=== PATIENT | male | born 1975 | race African-American/Black ===

== ENCOUNTER 2016-08-25 12:55 | Emergency (ER) | payer OTHER ==
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
[2016-08-25 15:20] VITALS: BP 128/88
--- NOTE | 2016-08-25 15:39 | RAD ---
INDICATION: Pain and swelling of thumb COMPARISON: None TECHNIQUE: AP, lateral, and oblique views were obtained. FINDINGS: There are no acute bony changes. 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 There is no acute bony change. There is mild soft tissue swelling over the dorsum of the hand. IMPRESSION: NO ACUTE BONY FINDINGS.
== END 2016-08-25 15:47 | disposition home or self-care (01) ==
LOC: UCEAST 12:55
DX: S60.222A Contusion of left hand, initial encounter (principal); W22.8XXA Striking against or struck by other objects, initial encounter; Y92.9 Unspecified place or not applicable; F17.210 Nicotine dependence, cigarettes, uncomplicated; Z79.82 Long term (current) use of aspirin; Z79.02 Long term (current) use of antithrombotics/antiplatelets; J45.909 Unspecified asthma, uncomplicated; I10 Essential (primary) hypertension; Z95.810 Presence of automatic (implantable) cardiac defibrillator
CPT/HCPCS: 99212; G0463

== ENCOUNTER 2023-05-18 19:22 | Observation (INO) ==
[2023-05-18 20:15] LABS: ABS Basophils 0.1 10^3/uL (0.0-0.1); ABS Lymphocytes 1.1 10^3/uL (1.0-4.8); ABS Monocytes 0.6 10^3/uL (0.0-1.1); ABS Neutrophils 5.6 10^3/uL (1.5-7.6); ABS Nucleated RBC 0.02 10^3/ul; Eosinophil % 0.4 %; Hematocrit 48.8 % (38-53); Hemoglobin 16.6 g/dL (13.2-16.3); Lymphocyte % 14.4 %; Mean Corpuscular Hemoglobin 33.6 pg (27-33); Mean Corpuscular Volume 98.7 fL (80-97); Mean Platelet Volume 10.4 fL (7.5-11.2); Nucleated Red Blood Cells % 0.3 %/100WBC (0.0-0.8); Platelet Count 122 10^3/uL (150-450); Red Blood Count 4.95 10^6/uL (4.06-5.63); Red Cell Distribution Width 19.5 % (12-17); White Blood Count 7.4 10^3/uL (3.6-10.2)
[2023-05-18 20:25] LABS: INR 1.97 (0.83-1.13)
[2023-05-18 20:42] LABS: Albumin/Globulin Ratio 0.7 (1-3); Calcium 8.9 mg/dL (8.6-10.3); Creatinine, Serum 1.26 mg/dL (0.67-1.17); Globulin 4.3 g/dL (2-4); Potassium 4.7 mmol/L (3.5-5.0); Total Bilirubin 4.8 mg/dL (0.2-1.0); Total Protein 7.3 g/dL (6.4-8.9); eGFR CKD-EPI 69.9 (>60)
[2023-05-18] MEDS ORDERED: Furosemide 40 mg/4 ml IV VIAL IV ONE (21:21)
[2023-05-18] MEDS ORDERED: Iohexol 350 (CONTRAST) 500 ML MDV IV ONE (21:56)
[2023-05-18 22:36] LABS: High Sensitivity Troponin 1 Hr 69 pg/mL (<20)
[2023-05-19] MEDS ORDERED: Furosemide 40 mg/4 ml IV VIAL IV SLOW PU ONE (01:26)
[2023-05-19 01:56] LABS: Direct Bilirubin 2.2 mg/dL (0.03-0.18); Magnesium 1.9 mg/dL (1.9-2.7)
[2023-05-19] MEDS ORDERED: Enoxaparin 40 MG/0.4 ML SYR SUBCUT SCH (02:00)
[2023-05-19 05:05] LABS: Urine Appearance Clear; Urine Bilirubin Negative (Negative); Urine Blood Negative (Negative); Urine Color Amber; Urine Glucose Negative (Negative); Urine Ketones Negative (Negative); Urine Nitrite Negative (Negative); Urine Protein 2+(100 mg/dL) (Negative); Urine Specific Gravity 1.013 (1.002-1.030); Urine Urobilinogen Positive (Negative)
[2023-05-19 05:27] LABS: Urine Bacteria Absent (Absent); Urine Red Blood Cell Trace(0-2/hpf) (Absent); Urine White Blood Cell Trace(0-5/hpf) (Absent)
[2023-05-19] MEDS ORDERED: Furosemide 40 mg/4 ml IV VIAL IV SLOW PU SCH (08:00)
[2023-05-19 08:26] LABS: Urine Creatinine Concentration 36.83 mg/dL (20.00-370.00); Urine TP Creat Ratio 0.24 mg/mg
[2023-05-19] MEDS ORDERED: Saline NASAL SPRAY 0.65% BTL BOTH NARES ONE (08:29)
[2023-05-19] MEDS: Aspirin EC 81 mg TAB.EC (enteric coated) PO SCH (08:49)
[2023-05-19] MEDS: Enoxaparin 40 MG/0.4 ML SYR SUBCUT SCH (09:03)
[2023-05-19 12:51] LABS: Calcium 8.4 mg/dL (8.6-10.3); Creatinine, Serum 1.21 mg/dL (0.67-1.17); Magnesium 1.8 mg/dL (1.9-2.7); eGFR CKD-EPI 73.4 (>60)
[2023-05-19 13:18] LABS: Potassium 4.7 mmol/L (3.5-5.0)
[2023-05-20 06:50] LABS: ABS Basophils 0.1 10^3/uL (0.0-0.1); ABS Eosinophils 0.1 10^3/uL (0.0-0.5); ABS Lymphocytes 1.3 10^3/uL (1.0-4.8); ABS Monocytes 0.6 10^3/uL (0.0-1.1); ABS Neutrophils 5.4 10^3/uL (1.5-7.6); ABS Nucleated RBC 0.02 10^3/ul; Eosinophil % 0.8 %; Hemoglobin 15.8 g/dL (13.2-16.3); Lymphocyte % 17.6 %; Mean Corpuscular Hgb Conc 33.6 g/dL (31-36); Mean Corpuscular Volume 98.4 fL (80-97); Mean Platelet Volume 10.3 fL (7.5-11.2); Nucleated Red Blood Cells % 0.3 %/100WBC (0.0-0.8); Platelet Count 113 10^3/uL (150-450); Red Blood Count 4.78 10^6/uL (4.06-5.63); Red Cell Distribution Width 19.3 % (12-17); White Blood Count 7.4 10^3/uL (3.6-10.2)
[2023-05-20 07:05] LABS: Albumin 2.8 g/dL (3.2-5.2); Albumin/Globulin Ratio 0.7 (1-3); Calcium 8.5 mg/dL (8.6-10.3); Creatinine, Serum 1.05 mg/dL (0.67-1.17); Globulin 4.1 g/dL (2-4); Magnesium 1.8 mg/dL (1.9-2.7); Potassium 4.4 mmol/L (3.5-5.0); Total Protein 6.9 g/dL (6.4-8.9)
[2023-05-20] MEDS ORDERED: Magnesium Sulfate 2 gm BAG 2 GM/50 ML BAG IVPB ONE (07:40)
[2023-05-20] MEDS ORDERED: Furosemide 40 mg/4 ml IV VIAL IV SLOW PU SCH (08:00)
[2023-05-20] MEDS: Enoxaparin 40 MG/0.4 ML SYR SUBCUT SCH ×2 (09:26→09:31)
[2023-05-20] MEDS: Aspirin EC 81 mg TAB.EC (enteric coated) PO SCH (09:28)
[2023-05-20] MEDS ORDERED: Magnesium Chloride EC 64 mgTAB PO ONE (10:28)
[2023-05-20] MEDS ORDERED: Furosemide 40 mg/4 ml IV VIAL IV ONE (14:00)
[2023-05-21] MEDS ORDERED: Saline NASAL SPRAY 0.65% BTL BOTH NARES PRN (02:12)
[2023-05-21] MEDS ORDERED: PAIN RELIEVING RUB (MENTHOL/SALICYLATE) 1 APPLIC TUBE TOPICAL PRN (03:46)
[2023-05-21 06:40] LABS: ABS Basophils 0.1 10^3/uL (0.0-0.1); ABS Lymphocytes 1.2 10^3/uL (1.0-4.8); ABS Monocytes 0.6 10^3/uL (0.0-1.1); ABS Neutrophils 4.9 10^3/uL (1.5-7.6); ABS Nucleated RBC 0.02 10^3/ul; Eosinophil % 0.5 %; Hematocrit 46.4 % (38-53); Hemoglobin 15.6 g/dL (13.2-16.3); Lymphocyte % 17.6 %; Mean Corpuscular Hemoglobin 33.2 pg (27-33); Mean Corpuscular Hgb Conc 33.6 g/dL (31-36); Mean Corpuscular Volume 98.8 fL (80-97); Mean Platelet Volume 10.5 fL (7.5-11.2); Nucleated Red Blood Cells % 0.4 %/100WBC (0.0-0.8); Platelet Count 116 10^3/uL (150-450); Red Blood Count 4.69 10^6/uL (4.06-5.63); Red Cell Distribution Width 20.3 % (12-17); White Blood Count 6.8 10^3/uL (3.6-10.2)
[2023-05-21 07:01] LABS: Albumin 2.6 g/dL (3.2-5.2); Albumin/Globulin Ratio 0.7 (1-3); Calcium 8.3 mg/dL (8.6-10.3); Creatinine, Serum 1.08 mg/dL (0.67-1.17); Magnesium 1.9 mg/dL (1.9-2.7); Potassium 4.2 mmol/L (3.5-5.0); Total Bilirubin 4.1 mg/dL (0.2-1.0); Total Protein 6.6 g/dL (6.4-8.9); eGFR CKD-EPI 84.1 (>60)
[2023-05-21 08:22] LABS: Direct Bilirubin 1.9 mg/dL (0.03-0.18); Indirect Bilirubin 2.2 mg/dL (0.3-1.0)
[2023-05-21 09:20] LABS: Albumin 2.5 g/dL (3.4-4.7); Flag, M-protein Isotype Positive (Negative); Total Protein 7.1 g/dL (6.3 - 7.9)
[2023-05-21] MEDS: Aspirin EC 81 mg TAB.EC (enteric coated) PO SCH (09:23)
[2023-05-21] MEDS: Enoxaparin 40 MG/0.4 ML SYR SUBCUT SCH (09:23)
[2023-05-21 14:32] VITALS: BP 110/69
== END 2023-05-21 14:55 | disposition home or self-care (01) ==
LOC: ED 19:22 → EDHOLD 19:22 → SUATTDRO 05-19 01:22 → MEDTELE 05-19 11:14
PROVIDERS: ADMIT Internal Medicine; ATTEND Hospitalist

== ENCOUNTER 2023-06-01 21:08 | Inpatient (IN) ==
[2023-06-01 22:24] LABS: ABS Basophils 0.1 10^3/uL (0.0-0.1); ABS Lymphocytes 0.8 10^3/uL (1.0-4.8); ABS Monocytes 0.9 10^3/uL (0.0-1.1); ABS Neutrophils 7.2 10^3/uL (1.5-7.6); ABS Nucleated RBC 0.01 10^3/ul; Eosinophil % 0.1 %; Hematocrit 44.4 % (38-53); Mean Corpuscular Hgb Conc 33.7 g/dL (31-36); Mean Corpuscular Volume 97.8 fL (80-97); Mean Platelet Volume 8.6 fL (7.5-11.2); Nucleated Red Blood Cells % 0.1 %/100WBC (0.0-0.8); Platelet Count 201 10^3/uL (150-450); Red Blood Count 4.54 10^6/uL (4.06-5.63); Red Cell Distribution Width 19.9 % (12-17); White Blood Count 8.9 10^3/uL (3.6-10.2)
[2023-06-01 22:41] LABS: Albumin 3.1 g/dL (3.2-5.2); Albumin/Globulin Ratio 0.7 (1-3); C Reactive Protein 37.75 mg/L (<8.01); Calcium 8.9 mg/dL (8.6-10.3); Creatinine, Serum 1.08 mg/dL (0.67-1.17); Globulin 4.6 g/dL (2-4); Potassium 4.6 mmol/L (3.5-5.0); Total Bilirubin 3.3 mg/dL (0.2-1.0); Total Protein 7.7 g/dL (6.4-8.9); eGFR CKD-EPI 84.1 (>60)
[2023-06-02] MEDS ORDERED: Furosemide 40 mg/4 ml IV VIAL IV SLOW PU ONE ×2 (00:33→06:30)
[2023-06-02] MEDS ORDERED: Iohexol 350 (CONTRAST) 500 ML MDV IV ONE (01:08)
[2023-06-02] MEDS ORDERED: Acetaminophen IV 1 GM/100ML 1,000 MG/100 ML BAG IV ONE (03:05)
[2023-06-02 04:45] LABS: Direct Bilirubin 1.6 mg/dL (0.03-0.18)
[2023-06-02] MEDS ORDERED: Ondansetron 4 mg VIAL 2 MG/ML 2 ml VIAL IV PRN (04:58)
[2023-06-02 06:30] LABS: High Sensitivity Troponin 1 Hr 88 pg/mL (<20)
[2023-06-02 06:47] LABS: Magnesium 1.5 mg/dL (1.9-2.7)
[2023-06-02] MEDS ORDERED: Morphine 2 MG/ML SYRINGE IV PRN ×2 (07:03→14:02)
[2023-06-02] MEDS: Aspirin EC 81 mg TAB.EC (enteric coated) PO SCH (08:30)
[2023-06-02] MEDS: Enoxaparin 40 MG/0.4 ML SYR SUBCUT SCH (08:30)
[2023-06-02] MEDS ORDERED: Morphine 2 MG/ML SYRINGE IV ONE (09:24)
[2023-06-02] MEDS ORDERED: cefTRIAXone 1 gm/50 mL D5W 1 GM/50 ML BAG IV SCH (10:30)
[2023-06-02] MEDS ORDERED: Magnesium Sulfate 2 gm BAG 2 GM/50 ML BAG IVPB ONE (10:50)
[2023-06-02] MEDS ORDERED: Magnesium Sulfate IV 1GM/100ML 1 GM/100 ML BAG IV ONE (12:50)
[2023-06-02 21:47] LABS: Ferritin 516.5 ng/mL (24-336)
[2023-06-02 22:26] LABS: High Sensitivity Troponin 1 Hr 76 pg/mL (<20)
[2023-06-03] MEDS: Morphine 2 MG/ML SYRINGE IV PRN ×3 (00:09→12:10)
[2023-06-03 07:33] LABS: Hematocrit 53.9 % (38-53); Hemoglobin 17.7 g/dL (13.2-16.3); Mean Corpuscular Hemoglobin 32.8 pg (27-33); Mean Corpuscular Hgb Conc 32.7 g/dL (31-36); Mean Corpuscular Volume 100.1 fL (80-97); Mean Platelet Volume 8.8 fL (7.5-11.2); Platelet Count 217 10^3/uL (150-450); Red Blood Count 5.39 10^6/uL (4.06-5.63); Red Cell Distribution Width 20.5 % (12-17); White Blood Count 17.1 10^3/uL (3.6-10.2)
[2023-06-03 07:50] LABS: Calcium 10.3 mg/dL (8.6-10.3); Creatinine, Serum 1.24 mg/dL (0.67-1.17); Magnesium 1.9 mg/dL (1.9-2.7); Potassium 4.8 mmol/L (3.5-5.0); eGFR CKD-EPI 71.3 (>60)
[2023-06-03 09:36] LABS: ABS Basophils 0.1 10^3/uL (0.0-0.1); ABS Lymphocytes 1.3 10^3/uL (1.0-4.8); ABS Monocytes 1.9 10^3/uL (0.0-1.1); ABS Neutrophils 13.8 10^3/uL (1.5-7.6); ABS Nucleated RBC 0.01 10^3/ul; Eosinophil % 0.2 %; Lymphocyte % 7.8 %; Nucleated Red Blood Cells % 0.1 %/100WBC (0.0-0.8)
[2023-06-03] MEDS: Enoxaparin 40 MG/0.4 ML SYR SUBCUT SCH (09:47)
[2023-06-03] MEDS: Aspirin EC 81 mg TAB.EC (enteric coated) PO SCH (09:47)
[2023-06-03] MEDS: Bumetanide IV 0.25 MG/ML 4 ml VIAL (1 mg) IV SLOW PU SCH ×2 (09:52→20:51)
[2023-06-03] MEDS: cefTRIAXone 1 GM Q24H (ADVAN) IVPB SCH (12:09)
[2023-06-03 13:15] LABS: INR 1.58 (0.83-1.13)
[2023-06-03] MEDS ORDERED: Morphine 2 MG/ML SYRINGE IV ONE (20:41)
[2023-06-03] MEDS ORDERED: Acetaminophen IV 1 GM/100ML 1,000 MG/100 ML BAG IV ONE (20:47)
[2023-06-04] MEDS ORDERED: Acetaminophen IV 1 GM/100ML 1,000 MG/100 ML BAG IV ONE (03:03)
[2023-06-04] MEDS ORDERED: Ondansetron 4 mg VIAL 2 MG/ML 2 ml VIAL IV ONE (03:48)
[2023-06-04 06:56] LABS: Hematocrit 45.3 % (38-53); Hemoglobin 15.3 g/dL (13.2-16.3); Mean Corpuscular Hemoglobin 33.1 pg (27-33); Mean Corpuscular Hgb Conc 33.7 g/dL (31-36); Mean Corpuscular Volume 98.2 fL (80-97); Mean Platelet Volume 9.2 fL (7.5-11.2); Platelet Count 226 10^3/uL (150-450); Red Blood Count 4.62 10^6/uL (4.06-5.63); Red Cell Distribution Width 19.6 % (12-17)
[2023-06-04 07:58] LABS: Calcium 9.3 mg/dL (8.6-10.3); Creatinine, Serum 1.36 mg/dL (0.67-1.17); Potassium 4.5 mmol/L (3.5-5.0); eGFR CKD-EPI 63.8 (>60)
[2023-06-04] MEDS: Aspirin EC 81 mg TAB.EC (enteric coated) PO SCH (09:52)
[2023-06-04] MEDS: Enoxaparin 40 MG/0.4 ML SYR SUBCUT SCH (10:03)
[2023-06-04] MEDS: Bumetanide IV 0.25 MG/ML 4 ml VIAL (1 mg) IV SLOW PU SCH (10:04)
[2023-06-04] MEDS: Acetaminophen IV 1 GM/100ML 1,000 MG/100 ML BAG IV SCH ×2 (10:06→15:13)
[2023-06-04 10:19] LABS: ABS Basophils 0.2 10^3/uL (0.0-0.1); ABS Lymphocytes 0.5 10^3/uL (1.0-4.8); ABS Monocytes 1.3 10^3/uL (0.0-1.1); ABS Nucleated RBC 0.01 10^3/ul; Eosinophil % 0.1 %; Lymphocyte % 3.2 %; Nucleated Red Blood Cells % 0.1 %/100WBC (0.0-0.8)
[2023-06-04] MEDS: cefTRIAXone 1 GM Q24H (ADVAN) IVPB SCH (12:59)
[2023-06-04 16:22] VITALS: BP 94/60
== END 2023-06-04 17:35 | disposition short-term general hospital (02) | DRG 189 ==
LOC: ED 21:08 → EDHOLD 06-02 05:06 → MEDTELE 06-02 13:08
PROVIDERS: ADMIT Internal Medicine; ATTEND Internal Medicine